=== PATIENT | female | born 1975 | race Caucasian/White ===

== ENCOUNTER 2018-09-04 03:05 | Emergency (ER) | payer BC, OTHER, SELFPAY ==
[~2018-09-04] VITALS: Ht 167.6 cm; Wt 105.5 kg
[2018-09-04] MEDS ORDERED: GABA300C10 PO (03:14)
[2018-09-04] MEDS ORDERED: MELO15TA24 PO (03:14)
[2018-09-04] MEDS ORDERED: HYDR50TA13 PO (03:14)
[2018-09-04 04:14] VITALS: BP 154/82
== END 2018-09-04 04:16 | disposition home or self-care (01) ==
LOC: ED 04:10
DX: G62.9 Polyneuropathy, unspecified (principal); M25.521 Pain in right elbow; M79.641 Pain in right hand; M79.642 Pain in left hand; F41.1 Generalized anxiety disorder; Z87.891 Personal history of nicotine dependence
CPT/HCPCS: 99281

== ENCOUNTER 2018-11-15 15:46 | Emergency (ER) | payer BC ==
[~2018-11-15] VITALS: Ht 170.2 cm; Wt 105.0 kg
[~2018-11-15 15:46] MED LIST: GABA300C10 PO; HYDR50TA13 PO; MELO15TA24 PO
[2018-11-15 15:55] VITALS: BP 141/78
--- NOTE | 2018-11-15 16:06 | NUR ---
43 Y/O FEMALE PRESENTS TO ED WITH C/O BILATERAL HAND PAIN. NO ACUTE DISTRESS NOTED.
[2018-11-15] MEDS ORDERED: HYDROcodone/APAP 5/325 TABLET ONE (16:09)
[2018-11-15] MEDS ORDERED: HYDROcodone/APAP 5/325 TABLET PO ONE (16:30)
--- NOTE | 2018-11-15 16:50 | NUR ---
Patient/Caregiver given discharge instructions and they have confirmed that they understand the instructions. Patient ambulatory with steady gait. PT LEFT WITH ALL PERSONAL BELONGINGS.
== END 2018-11-15 16:52 | disposition home or self-care (01) ==
LOC: ED 16:44
DX: G56.03 Carpal tunnel syndrome, bilateral upper limbs (principal); Z87.891 Personal history of nicotine dependence
CPT/HCPCS: 99282